=== PATIENT | male | born 1930 | race Caucasian/White ===

== ENCOUNTER 2018-02-04 13:25 | Emergency (ER) | payer MEDICARE, OTHER ==
[2018-02-04] MEDS ORDERED: 0.9 % SODIUM CHLORIDE 500 ML IV ONE ×2 (13:42→14:49)
--- NOTE | 2018-02-04 13:45 | ED Physician Documentation ---
General Adult - HISTORIAN Historian: patient, paramedics - HPI Stated Complaint: weakness, recent pneumonia Chief Complaint: General Adult Onset: days ago Timing: still present Severity: moderate Further Comments: yes (Pt is an 87 yo male assisted patient who was recently dx'd and tx'd for pneumonia. Pt has been taking Levaqin. Today pt appeared more lethargic than usual, and says he is not feeling well with weakness and some abd discomfort. 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, Acute myoblastic leukemia in remission, DMII, HLD, TIA, urinary retention.) Allergies/Adverse Reactions: Allergies Allergy/AdvReac Type Severity Reaction Status Date / Time No Known Allergies Allergy Verified 05/16/14 07:42 Home Medications: Ambulatory Orders Medication Instructions Recorded Aspirin/Dipyridamole [Aggrenox 25 1 tab PO DIRECTED 02/16/14 mg-200 mg Capsule] Calcium Carbonate/Vitamin D3 1 tab PO DAILY 02/16/14 [Calcium 500 + D Tablet] Finasteride [Proscar] 1 tab PO DAILY 02/16/14 Nitrofurantoin [Furadantin] 100 mg PO DAILY 02/16/14 Phenytoin Sodium Extended 200 mg PO DAILY 02/16/14 [Dilantin] Simvastatin [Zocor] 80 mg PO DAILY 02/16/14 Tamsulosin HCl [Flomax] 1 tab PO DAILY 02/16/14 - SOCIAL HX Smoking History: non-smoker - FAMILY HX Family History: No - VITAL SIGNS Vital Signs: Vital Signs Temp Pulse Resp BP Pulse Ox 128/68 05/16/14 09:18 - REVIEWED ASSESSMENTS Nursing Assessment Reviewed: Yes Vitals Reviewed: Yes Progress - Progress Progress: NS 1 L IVF CXR: Mild cardiomegaly with atherosclerotic thoracic aorta. The visible lungs parenchyma shows no appreciable infiltrate. Right upper lung is obscured by the patient neck and mandible. No significant pleural effusion. Impression: Cardiomegaly with atherosclerotic thoracic aorta. Suboptimal film but grossly, no evidence of infiltrates or pleural effusion. X-ray abd: There is dense pelvis probably distended bladder to the the level of L4. No dilated small or large bowel loops. No definite evidence of free air. Lumbar spondylosis with what appear to be compression fracture of L1. Impression: Pelvic mass versus distended bladder. No definite bowel obstruction or free air. mcclendon cath placed, 1700 cc out. Pt greatly improved after IVF and bladder drainage. mcclendon cath prn at assisted. - EKG/XRAY/CT EKG: rhythm ([id number] [id number]; occassional supraventricular beats; artifact.) ED Results Lab/Radiology - Orders Orders: ED Orders Category Date Time Status Continuous EKG monitoring Q30M Care 02/04/18 13:40 Active Continuous Pulse Oximetry Q30M Care 02/04/18 13:[address] IV Lock 1T Care 02/04/18 13:40 Active ABDOMEN 1VIEW [RAD] Stat Exams 02/04/18 Ordered CHEST 1VIEW [RAD] Stat Exams 02/04/18 Ordered CBC/PLATELET/DIFF Routine Lab 02/04/18 13:40 Ordered CKMB Stat Lab 02/04/18 Ordered CMP Routine Lab 02/04/18 13:40 Ordered CREATINE KINASE Routine Lab 02/04/18 13:40 Ordered NT-proBNP Stat Lab 02/04/18 Ordered TROPONIN I (cTnI) Stat Lab 02/04/18 Ordered NORMAL SALINE @ 500 MLS/HR(500ml BOLUS) Med 02/04/18 13:42 Ordered 0.9 % Sodium Chloride [Normal Saline] 500 ml IV NOW EKG WITH COMPARISON Stat Ther 02/04/18 13:40 Ordered General Adult Physical Exam - PHYSICAL EXAM GENERAL APPEARANCE: moderate distress EENT: pharynx normal, dry mucous membranes NECK: normal inspection, thyroid normal, supple RESPIRATORY: no resp distress, chest non-tender, breath sounds normal (limited excursion) CVS: reg rate & rhythm, heart sounds normal ABDOMEN: soft, tenderness (mild/mod lower abd tenderness), decreased BS BACK: normal inspection, no CVA tenderness SKIN: warm/dry, normal color EXTREMITIES: non-tender, normal range of motion, no evidence of injury, no edema NEURO: motor nml, sensation nml, other (baseline mental status, answers appropriate) Discharge Clincal Impression: dehydration, urinary retention Referrals: Primary Doctor,No [Primary Care Provider] - Condition: Good Disposition: 04 XFER ALF Decision to Admit: NO Decision Time: 15:40
[2018-02-04 13:58] LABS: BASOPHILS % 0.3 (0.0-1.5); EOSINOPHILS % 0.2 % (0.0-6.8); MEAN CORPUSCULAR HEMOGLOBIN 31.8 pg (28.0-34.0); MEAN CORPUSCULAR VOLUME 100.9 fl (80.0-100.0); MONOCYTES % 6.1 % (0.0-11.0); NEUTROPHILS # 9.2 # k/uL (1.4-7.7)
[2018-02-04 14:19] LABS: eGFR (African) > 60; eGFR (Non-African) > 60
--- NOTE | 2018-02-04 14:51 | Diagnostic Imaging Report ---
EUN MARTÍNEZ [facility] [address] [facility] [address] [address] Report Submission Date: Feb 04, 2018 2:48:53 PM CDT Patient Study Name: ALBERT NUÑEZ Date: Feb 04, 2018 2:10:43 PM CDT Modality Type: DX Gender: M Description: ABDOMEN : 34 Institution: [facility] Physician: EUN MARTÍNEZ AP view of the abdomen Clinical history: Abdominal pain There is dense pelvis probably distended bladder to the the level of L4. No dilated small or large bowel loops. No definite evidence of free air. Lumbar spondylosis with what appear to be compression fracture of L1 Impression: Pelvic mass versus distended bladder. No definite bowel obstruction or free air Electronically signed on Feb 04, 2018 2:48:53 PM CDT by: Wesly NUNO
--- NOTE | 2018-02-04 14:52 | Diagnostic Imaging Report ---
EUN MARTÍNEZ [facility] [address] [facility] [address] [address] Report Submission Date: Feb 04, 2018 2:47:07 PM CDT Patient Study Name: ALBERT NUÑEZ Date: Feb 04, 2018 2:06:25 PM CDT Modality Type: DX Gender: M Description: CHEST : 34 Institution: [facility] Physician: EUN MARTÍNEZ Chest AP portable at 1406 hours of February 04, 2018 Clinical history: cough Mild cardiomegaly with atherosclerotic thoracic aorta. The visible lungs parenchyma shows no appreciable infiltrate. Right upper lung is obscured by the patient neck and mandible. No significant pleural effusion. Impression: Cardiomegaly with atherosclerotic thoracic aorta Suboptimal film but grossly, no evidence of infiltrates or pleural effusion Electronically signed on Feb 04, 2018 2:47:07 PM CDT by: Wesly NUNO
[2018-02-04 15:41] VITALS: BP 138/67
[2018-02-05 06:16] LABS: APPEARANCE,URINE CLEAR (CLEAR); COLOR,URINE AMBER (YELLOW); OCCULT BLOOD,URINE NEGATIVE (NEGATIVE); PH URINE 5.5 (5.0 - 8.0); UROBILINOGEN URINE 0.2 Eu (0.2-1.0)
== END 2018-02-04 15:40 ==
LOC: ED 13:25
DX: E86.0 Dehydration (principal); R33.9 Retention of urine, unspecified; J18.9 Pneumonia, unspecified organism
CPT/HCPCS: 71045; 74018; 80053; 81002; 82550; 82553; 83880; 84484; 85025; 93005; J7060; 96360; 96361; 99283; S1016